=== PATIENT | female | born 1965 | race Caucasian/White ===

== ENCOUNTER → 2016-12-27 | Outpatient (CLI) | payer BC ==
--- NOTE | 2016-12-30 09:24 | MM ---
Reason for exam: screening (asymptomatic). Last mammogram was performed 1 year ago. Physical Findings: A clinical breast exam by your physician is recommended on an annual basis and results should be correlated with mammographic findings. MG Screening Mammo w CAD Bilateral CC and MLO view(s) were taken. Prior study comparison: January 02, 2016, bilateral MG screening mammo w CAD. November 12, 2014, bilateral MG screening mammo w CAD. The breast tissue is almost entirely fat. There is no discrete abnormality. No significant changes when compared with prior studies. ASSESSMENT: Negative, BI-RAD 1 RECOMMENDATION: Routine screening mammogram of both breasts in 1 year.
== END | disposition home or self-care (01) ==
LOC: RADMAMWWP 07:10
PROVIDERS: ATTEND Family Medicine
DX: Z12.31 Encounter for screening mammogram for malignant neoplasm of breast (principal)

== ENCOUNTER → 2018-01-16 | Outpatient (CLI) | payer BC ==
--- NOTE | 2018-01-20 07:09 | MM ---
Reason for exam: screening (asymptomatic). Last mammogram was performed 1 year and 1 month ago. Physical Findings: A clinical breast exam by your physician is recommended on an annual basis and results should be correlated with mammographic findings. MG Screening Mammo w CAD Bilateral CC and MLO view(s) were taken. Prior study comparison: December 27, 2016, bilateral MG screening mammo w CAD. January 02, 2016, bilateral MG screening mammo w CAD. There are scattered fibroglandular densities. There is no discrete abnormality. ASSESSMENT: Negative, BI-RAD 1 RECOMMENDATION: Routine screening mammogram of both breasts in 1 year.
== END | disposition home or self-care (01) ==
LOC: RADMAMWWP 07:17
PROVIDERS: ATTEND Family Medicine
DX: Z12.31 Encounter for screening mammogram for malignant neoplasm of breast (principal)
CPT/HCPCS: 77067

== ENCOUNTER → 2019-01-20 | Outpatient (CLI) | payer BC ==
--- NOTE | 2019-01-21 11:06 | MM ---
Reason for exam: screening (asymptomatic). Last mammogram was performed 1 year ago. Physical Findings: A clinical breast exam by your physician is recommended on an annual basis and results should be correlated with mammographic findings. MG Screening Mammo w CAD Bilateral CC and MLO view(s) were taken. Prior study comparison: January 16, 2018, bilateral MG screening mammo w CAD. December 27, 2016, bilateral MG screening mammo w CAD. The breast tissue is heterogeneously dense. This may lower the sensitivity of mammography. There are benign appearing round calcifications in the left breast. ASSESSMENT: Benign, BI-RAD 2 RECOMMENDATION: Routine screening mammogram of both breasts in 1 year.
== END | disposition home or self-care (01) ==
LOC: RADMAMWWP 08:16
PROVIDERS: ATTEND Family Medicine
DX: Z12.31 Encounter for screening mammogram for malignant neoplasm of breast (principal)
CPT/HCPCS: 77067

== ENCOUNTER → 2020-06-08 | Outpatient (CLI) | payer BC ==
--- NOTE | 2020-06-09 13:44 | MM ---
Reason for exam: screening (asymptomatic). Last mammogram was performed 1 year and 5 months ago. Physical Findings: A clinical breast exam by your physician is recommended on an annual basis and results should be correlated with mammographic findings. MG Screening Mammo w CAD Bilateral CC and MLO view(s) were taken. Prior study comparison: January 20, 2019, bilateral MG screening mammo w CAD. January 16, 2018, bilateral MG screening mammo w CAD. There are scattered fibroglandular densities. There is chronic nodularity in the right breast. There is no new dominant lesion. Asymmetric breast tissue left anterior breast is stable. ASSESSMENT: Benign, BI-RAD 2 RECOMMENDATION: Routine screening mammogram of both breasts in 1 year.
== END | disposition home or self-care (01) ==
LOC: RADMAMWWP 07:51
PROVIDERS: ATTEND Family Medicine
DX: Z12.31 Encounter for screening mammogram for malignant neoplasm of breast (principal)
CPT/HCPCS: 77067

== ENCOUNTER 2022-10-25 04:35 | Observation (INO) | payer BC ==
[2022-10-25 04:51] VITALS: TEMP 97.7
[2022-10-25] MEDS ORDERED: NALOXONE 0.4 MG/ML 1 ML VIAL IV PRN (05:32)
[2022-10-25] MEDS ORDERED: SODIUM CHLORIDE 0.9% 1,000 ML IV SCH (05:45)
--- NOTE | 2022-10-25 05:46 | ED ---
General Adult HPI - General Chief complaint: Recheck/Abnormal Lab/Rx Stated complaint: Cardiology office sent for echo Time Seen by Provider: 10/25/22 05:17 Source: patient Mode of arrival: ambulatory Limitations: no limitations - History of Present Illness Initial comments: Dictation was produced using [employer] dictation software. please excuse any grammatical, word or spelling errors. Chief Complaint: 57-year-old female with abnormal echocardiogram History of Present Illness: 57-year-old female she had a surveillance echocardiogram performed yesterday at [facility]. Patient has a history of murmur. 2007 was when she first had an echocardiogram. Patient was at her primary care physician's office yesterday where discussion was held with special education preschool teacher regarding patient's echocardiogram. She is instructed to come to the emergency department to be admitted for urgent transesophageal echocardiogram. Patient has no complaints. She reports having stable cardiac murmur. Denies any fever or constitutional symptoms. She did look report on her smartphone device for review. The ROS documented in this emergency department record has been reviewed and confirmed by me. Those systems with pertinent positive or negative responses have been documented in the HPI. All other systems are other negative and/or noncontributory. PHYSICAL EXAM: General Impression: Alert and oriented x3, not in acute distress HEENT: Normocephalic atraumatic, extra-ocular movements intact, pupils equal and reactive to light bilaterally, mucous membranes moist. Cardiovascular: Heart regular rate and rhythm Chest: Able to complete full sentences, no retractions, no tachypnea Abdomen: abdomen soft, non-tender, non-distended, no organomegaly Musculoskeletal: Pulses present and equal in all extremities, no peripheral edema Motor: no focal deficits noted Neurological: CN II-XII grossly intact, no focal motor or sensory deficits noted Skin: Intact with no visualized rashes Psych: Normal affect and mood ED course: 57-year-old well-appearing female shortened by primary care physician after discussion with her special education preschool teacher to come to the emergency department to be admitted for urgent transesophageal echocardiogram. Signs upon arrival are within acceptable limits. Patient's well-appearing at the bedside. Patient denies any complaints. Patient be admitted to observation with consultation to cardiology. Echocardiogram was reviewed. She did appear to be normal ejection fraction. There is severe aortic stenosis. There was concern for endocarditis Nursing notes and chart review was performed Was pt. sent in by a medical professional or institution (ANDRESSA Juarez, PHARMACY GRADUATE INTERN, urgent care, hospital, or [facility]...) When possible be specific @ - from primary care physician's office after instruction from special education preschool teacher Did you speak to anyone other than the patient for history (EMS, parent, family, police, friend...)? What history was obtained from this source @ -No Did you review nursing and triage notes (agree or disagree)? Why? @ -I reviewed and agree with nursing and triage notes Were old charts reviewed (outside hosp., previous admission, EMS record, old EKG, old radiological studies, urgent care reports/EKG's, [facility] records)? Report findings @ -Echocardiogram results from [facility] yesterday was reviewed. See above for further detail Differential Diagnosis (chest pain, altered mental status, abdominal pain women, abdominal pain men, vaginal bleeding, musculoskeletal, weakness, fever, dyspnea, syncope, headache, dizziness, GI bleed, back pain, seizure, CVA, palpatations, mental health)? @ -not applicable EKG interpreted by me (3pts min.). @ -None done X-rays interpreted by me (1pt min.). @ -None done CT interpreted by me (1pt min.). @ -None done U/S interpreted by me (1pt. min.). @ -None done What testing was considered but not performed or refused? (CT, X-rays, U/S, labs)? Why? @ -no What meds were considered but not given or refused? Why? @ -no Did you discuss the management of the patient with other professionals (professionals i.e. ANDRESSA Juarez, PHARMACY GRADUATE INTERN, lab, RT, psych nurse, community mental health social worker, black puller, teacher, morals squad police officer, supportive employment case manager)? Give summary @ -no Was smoking cessation discussed for >3mins.? @ -No Was critical care preformed (if so, how long)? @ -No Were there social determinants of health that impacted care today? How? (Home lessness, low income, unemployed, alcoholism, drug addiction, transportation, low edu. Level, literacy, decrease access to med. care, senior living, rehab)? @ -No Was there de-escalation of care discussed even if they declined (Discuss DNR or withdrawal of care, Hospice)? DNR status @ -No What co-morbidities impacted this encounter? (DM, HTN, Smoking, COPD, CAD, Cancer, CVA, ARF, Chemo, Hep., AIDS, mental health diagnosis, sleep apnea, morbid obesity)? @ -History of aortic stenosis Was patient admitted / discharged? Hospital course, mention meds given and route, prescriptions, significant lab abnormalities, going to OR and other pertinent info. @ -57-year-old female admitted to the hospital after having had a abnormal echocardiogram yesterday. Patient asymptomatic feels at baseline. Patient be admitted observation with consultation to cardiology. Echocardiogram report was reviewed suggesting that there is findings suspicious for endocarditis. Patient does not have any symptoms of infection. Undiagnosed new problem with uncertain prognosis? @ -No Drug Therapy requiring intensive monitoring for toxicity (Heparin, Nitro, Insulin, Cardizem)? @ -No Were any procedures done? @ -No Diagnosis/symptom? Acute, or Chronic, or Acute on Chronic? Uncomplicated (without systemic symptoms) or Complicated (systemic symptoms)? @ -1. Abnormal echocardiogram Side effects of treatment? @ -No Exacerbation, Progression, or Severe Exacerbation? @ -No Poses a threat to life or bodily function? How? (Chest pain, USA, MT, pneumonia, PE, COPD, DKA, ARF, appy, cholecystitis, CVA, Diverticulitis, Homicidal, Suicidal, threat to staff... and all critical care pts) @ -No - Related Data Home Medications Medication Instructions Recorded Confirmed Antiarthritic Combination No.2 900 mg PO DAILY 06/12/15 06/16/15 [Glucosamine-Chondroitin] Aspirin 81 mg PO DAILY 06/12/15 06/12/15 Benazepril [Lotensin] 40 mg PO DAILY 06/12/15 06/12/15 Furosemide [Lasix] 40 mg PO DAILY 06/12/15 06/16/15 Gabapentin [Neurontin] 400 mg PO QID 06/12/15 06/12/15 Glimepiride [Amaryl] 2 mg PO HS 06/12/15 06/16/15 Glimepiride [Amaryl] 6 mg PO AC-BRKFST 06/12/15 06/12/15 Multivit with Calcium,Iron,Min 1 each PO DAILY 06/12/15 06/16/15 [Women's Daily Multivitamin] Omeprazole [PriLOSEC] 20 mg PO AC-BRKFST 06/12/15 06/12/15 hydroCHLOROthiazide [Hydrodiuril] 25 mg PO DAILY 06/12/15 06/12/15 metFORMIN HCL [Glucophage] 850 mg PO TID 06/12/15 06/16/15 Allergies Allergy/AdvReac Type Severity Reaction Status Date / Time No Known Allergies Allergy Verified 06/12/15 11:18 Review of Systems ROS Statement: Those systems with pertinent positive or pertinent negative responses have been documented in the HPI. ROS Other: All systems not noted in ROS Statement are negative. Past Medical History Past Medical History: Diabetes Mellitus, GERD/Reflux Additional Past Medical History / Comment(s): see Dr Cooley H & P, neuropathy, swelling feet History of Any Multi-Drug Resistant Organisms: None Reported Additional Past Surgical History / Comment(s): cyst removed from cervix Past Anesthesia/Blood Transfusion Reactions: No Reported Reaction Past Psychological History: Anxiety Past Alcohol Use History: Rare Past Drug Use History: None Reported General Exam Limitations: no limitations Course Vital Signs 10/25/22 04:47 Temperature 97.7 F Pulse Rate 71 Respiratory 18 Rate Blood Pressure 127/83 O2 Sat by Pulse 100 Oximetry Disposition Clinical Impression: Abnormal echocardiogram Disposition: ADMITTED IP TO THIS [facility] Condition: Fair Referrals: Tracy Meza MD [Primary Care Provider] - 1-2 days Decision Time: 05:46
[2022-10-25 06:02] LABS: Basophils % (A) 0 %; Eosinophils # (A) 0.1 k/uL (0-0.7); Eosinophils % (A) 2 %; HCT 41.4 % (34.0-46.0); HGB 13.4 gm/dL (11.4-16.0); Lymphocytes # (A) 1.4 k/uL (1.0-4.8); Lymphocytes % (A) 26 %; MCH 28.6 pg (25.0-35.0); MCHC 32.4 g/dL (31.0-37.0); MCV 88.3 fL (80.0-100.0); Monocytes # (A) 0.3 k/uL (0-1.0); Monocytes % (A) 6 %; Neutrophils # (A) 3.5 k/uL (1.3-7.7); Neutrophils % (A) 65 %; Platelet Count 254 k/uL (150-450); RBC 4.69 m/uL (3.80-5.40); RDW 13.3 % (11.5-15.5); WBC 5.4 k/uL (3.8-10.6)
[2022-10-25 06:05] LABS: Partial Thromboplastin Time 24.9 sec (22.0-30.0); Prothrombin Time 10.4 sec (9.0-12.0)
[2022-10-25 06:15] LABS: Calcium 10.1 mg/dL (8.4-10.2); Potassium 4.2 mmol/L (3.5-5.1)
--- NOTE | 2022-10-25 09:20 | P.CRDCN ---
History of Present Illness Consult date: 10/25/22 Chief complaint: The patient is not experiencing any symptoms History of present illness: The patient is a very pleasant 57-year-old female patient who is known bicuspid aortic valve documented on transesophageal echocardiogram was performed in 2014 as well as diabetes and hypertension and dyslipidemia was asked by her primary care physician to go to the emergency department. Apparently recently she was seen at her primary care physician office where an echocardiogram was ordered to assess the status of the bicuspid aortic valve. The echocardiogram was performed at [facility] and I did look at the report which showed normal biventricular systolic function with evidence of concentric left ventricular hypertrophy and evidence off bicuspid aortic valve with a mean gradient across the valve of about 63 mmHg and possible "endocarditis". The patient reports no cardiovascular symptoms whatsoever. She is very active phys ically. She reports no shortness of breath and no symptoms of any chest pain or chest discomfort or dizziness or lightheadedness or any presyncope or syncope and no symptoms of any fever or chills. The patient was asked to go to the emergency department and to have transesophageal echocardiogram for further clarification of any evidence of endocarditis. The patient was seen and evaluated this morning. Her vitals are stable. On examination she does have significant crescendo decrescendo murmur was no ST whatsoever and the murmur is radiating to both carotids. Otherwise she has clear breathing sounds bilaterally and she has no lower back 70s edema noted and no ischemic changes noted as well Assessment Bicuspid aortic valve. Severe aortic stenosis [id number] mitral regurgitation Questionable vegetation was noted on the transthoracic echocardiogram Multiple comorbidities including diabetes and hypertension and dyslipidemia Plan Proceed with transesophageal echocardiogram for further evaluation for any evidence of endocarditis I informed the patient that she needs to undergo aortic valve replacement surgically Further recommendation to follow transesophageal echocardiogram Avoid aggressive blood pressure control Follow-up with the patient Past Medical History Past Medical History: Diabetes Mellitus, GERD/Reflux Additional Past Medical History / Comment(s): see Dr Coolye H & P, neuropathy, swelling feet History of Any Multi-Drug Resistant Organisms: None Reported Additional Past Surgical History / Comment(s): cyst removed from cervix Past Anesthesia/Blood Transfusion Reactions: No Reported Reaction Past Psychological History: Anxiety Past Alcohol Use History: Rare Past Drug Use History: None Reported Medications and Allergies Home Medications Medication Instructions Recorded Confirmed Type Benazepril [Lotensin] 40 mg PO DAILY 06/12/15 10/25/22 History Furosemide [Lasix] 40 mg PO DAILY 06/12/15 10/25/22 History Gabapentin [Neurontin] 400 mg PO QID 06/12/15 10/25/22 History Multivit with Calcium,Iron,Min 1 tab PO DAILY 06/12/15 10/25/22 History [Women's Daily Multivitamin] Omeprazole [PriLOSEC] 20 mg PO AC-BRKFST 06/12/15 10/25/22 History metFORMIN HCL [Glucophage] 850 mg PO TID 06/12/15 10/25/22 History ALPRAZolam [Xanax] 0.25 mg PO BID PRN 10/25/22 10/25/22 History Ascorbic Acid [Vitamin C] 1,000 mg PO DAILY 10/25/22 10/25/22 History Aspirin EC [Ecotrin Low Dose] 81 mg PO DAILY 10/25/22 10/25/22 History Azithromycin [Zithromax Z Pack] See Taper PO DAILY 10/25/22 10/25/22 History Fenofibrate Nanocrystallized 145 mg PO HS 10/25/22 10/25/22 History [Tricor] Ferrous Sulfate [Feosol] 325 mg PO HS 10/25/22 10/25/22 History Glucosamine/Chondr Goldsmith A Sod [Osteo 1 tab PO BID 10/25/22 10/25/22 History Bi-Flex Caplet] Metoprolol Succinate (ER) [Toprol 25 mg PO DAILY 10/25/22 10/25/22 History Xl] Tirzepatide [Mounjaro] 5 mg SQ TH 10/25/22 10/25/22 History Vitamin D3(Unknown) 1 tab PO DAILY 10/25/22 10/25/22 History Vits A,C,E/Lutein/Minerals 1 tab PO DAILY 10/25/22 10/25/22 History [Ocuvite with Lutein Tablet] Zinc Gluconate [Zinc] 50 mg PO DAILY 10/25/22 10/25/22 History sitaGLIPtin [Januvia] 100 mg PO DAILY 10/25/22 10/25/22 History Allergies Allergy/AdvReac Type Severity Reaction Status Date / Time No Known Allergies Allergy Verified 10/25/22 07:38 Physical Exam Vitals: Vital Signs Temp Pulse Resp BP Pulse Ox 10/25/22 07:19 68 18 137/86 99 10/25/22 04:47 97.7 F 71 18 127/83 100 Intake and Output 10/24/22 10/25/22 10/25/22 22:59 06:59 14:59 Other: Weight 98.883 kg Results 10/25/22 05:43 10/25/22 05:43 Coagulation 10/25/22 Range/Units 05:43 PT 10.4 (9.0-12.0) sec APTT 24.9 (22.0-30.0) sec CBC 10/25/22 Range/Units 05:43 WBC 5.4 (3.8-10.6) k/uL RBC 4.69 (3.80-5.40) m/uL Hgb 13.4 (11.4-16.0) gm/dL Hct 41.4 (34.0-46.0) % Plt Count 254 (150-450) k/uL Comprehensive Metabolic Panel 10/25/22 Range/Units 05:43 Sodium 142 (137-145) mmol/L Potassium 4.2 (3.5-5.1) mmol/L Chloride 104 (98-107) mmol/L Carbon Dioxide 31 H (22-30) mmol/L BUN 20 H (7-17) mg/dL Creatinine 0.90 (0.52-1.04) mg/dL Glucose 136 H (74-99) mg/dL Calcium 10.1 (8.4-10.2) mg/dL Current Medications Generic Name Dose Route Start Last Admin Trade Name Freq PRN Reason Stop Dose Admin Sodium Chloride 1,000 mls @ 130 mls/hr 10/25/22 05:45 10/25/22 07:45 Saline 0.9% IV 130 mls/hr .[id number] BETTY Administration Naloxone HCl 0.2 mg 10/25/22 05:32 Naloxone 0.4 Mg/Ml 1 Ml Vial IV Q2M PRN Opioid Reversal Intake and Output 10/24/22 10/25/22 10/25/22 22:59 06:59 14:59 Other: Weight 98.883 kg 10/25/22 05:43 10/25/22 05:43
[2022-10-25] MEDS ORDERED: fentaNYL (PF) 50 MCG/ML 2 ML AMP ONE (11:33)
[2022-10-25] MEDS: BENZOCAINE SPRAY 1 CAN MUCOUS MEM ONE ×2 (11:36→11:50)
[2022-10-25] MEDS ORDERED: IV FLUID CONTINUATION 1,000 ML IV ONE (11:37)
[2022-10-25] MEDS ORDERED: fentaNYL (PF) 50 MCG/ML 2 ML AMP IV ONE (11:50)
[2022-10-25] MEDS ORDERED: MIDAZOLAM 2 MG/2 ML VIAL IV ONE ×2 (11:50→11:52)
--- NOTE | 2022-10-25 12:10 | P.PCN ---
Date of Procedure: 10/25/22 Operative Findings: TRANSESOPHAGEAL ECHOCARDIOGRAM BILLING AND QUALITY TECHNICIAN: JANICE ESTEBAN MD, RPVI INDICATION: This is a 57-year-old female patient was known to have bicuspid aortic valve based on echo was performed in 2015 was seen recently by her primary care physician who ordered an echo for further evaluation. The echo revealed evidence of bicuspid aortic valve with severe aortic stenosis and questionable infective endocarditis. SEDATION: Conscious sedation COMPLICATION: None LEVEL OF SEDATION Moderate with sedation length of 12 minutes PROCEDURE DESCRIPTION: After obtaining an informed consent, the patient was brought to transesophageal echocardiogram room. Pulse oximetry and heart monitors were attached to the patient. The patient throat was sprayed using lidocaine. The patient was turned into left lateral position. After that a bite guard was placed. After an appropriate conscious sedation was initiated, the transesophageal echocardiogram was advanced through a bite guard into the mid esophagus. A 2-D echocardiogram images, color Doppler images, continuous wave images, pulse-wave images, of various cardiac structure were performed. After that the transesophageal echocardiogram probe was advanced into the stomach and fixed to obtain transgastric view was. The probe was brought into the mid esophagus. Inter-atrial septum was interrogated using 2D images, color Doppler images, and then contrast study. After that transesophageal echocardiogram was withdrawn out and upon withdrawing the descending thoracic aorta all the way up to the arch was evaluated. FINDING: The left ventricular dimension and systolic function appeared to be within normal limits. The EF appears to be in the range of 60-65%. There is [id number] concentric left ventricular hypertrophy. The right ventricle appeared to be of normal size and function. The mitral valve appeared to be intact was evidence of [id number] mitral regurgitation. The aortic valve is extremely thickened and calcified with what it seems to be evidence off bicuspid aortic valve with fusion of the non-coronary cusp and right coronary cusp and evidence of severe aortic stenosis was immediately gradient of 92 and peak gradient of 1 25 mmHg. Mild aortic insufficiency was identified. Beside that there was an echodensity attached to the aortic side of the aortic valve with free motion likely represent degenerative changes more than infective endocarditis. The tricuspid valve and pulmonic valve appeared to be within normal limits. No evidence of pericardial effusion identified CONCLUSION: 1. Bicuspid aortic valve with fusion of the right and noncoronary cusp and evidence of severe aortic stenosis with a mean gradient of 92 mmHg. Beside that there was an echodensity with free motion attached to the aortic side of the aortic valve likely represent degenerative changes more than infective endocarditis. 2. Intact mitral valve leaflets with [id number] mitral regurgitation. The mitral valve leaflets are within normal limits. The MR is likely secondary to aortic stenosis. No evidence of endocarditis 3. Intact tricuspid valve and pulmonic valve. No evidence of endocarditis 4. Normal left ventricular dimension and systolic function with evidence of iowk-vn-rygmarnz concentric LVH 5. No evidence of pericardial effusion
[2022-10-25 14:03] VITALS: BP 124/69; PULSE 64; RESP 16
== END 2022-10-25 14:10 | disposition home or self-care (01) ==
LOC: EC 04:35 → 6NMEDSUR 05:33
PROVIDERS: ADMIT Hospitalist; ATTEND Hospitalist
DX: Q23.1 Congenital insufficiency of aortic valve (principal); I35.0 Nonrheumatic aortic (valve) stenosis; I51.7 Cardiomegaly; I34.0 Nonrheumatic mitral (valve) insufficiency; I10 Essential (primary) hypertension; E78.5 Hyperlipidemia, unspecified; E11.40 Type 2 diabetes mellitus with diabetic neuropathy, unspecified; K21.9 Gastro-esophageal reflux disease without esophagitis; Z98.890 Other specified postprocedural states; F41.9 Anxiety disorder, unspecified; Z79.84 Long term (current) use of oral hypoglycemic drugs; Z79.82 Long term (current) use of aspirin; Z79.899 Other long term (current) drug therapy
CPT/HCPCS: 99285; 36415; 93312; 93320; 93325; 80048; 85025; 85610; 85730; 87040; G0378; J2250; J3010